=== PATIENT | female | born 1970 | race Two or more races ===

== ENCOUNTER → 2025-03-02 | Outpatient (CLI) | payer MEDICAID, SELFPAY ==
[2025-03-02 09:55] LABS: HCG Qualitative,Urine Negative
--- NOTE | 2025-03-02 10:30 | XR_ITS ---
Examination: CT chest, without intravenous contrast. Sagittal and coronal 2-D reconstructions. Exam date and time: March 02, 2025, 0904 hours INDICATIONS: Screening for tuberculosis CTDI:vol (mGy) 10.2 DLP: (mGycm) 321 Technique: Multiple 3.0 mm axial sections of the chest to been obtained. Bone and lung density settings are obtained. Sagittal and coronal 2-D reconstructions have been obtained. Low dose protocols were performed. One or more of the following dose reduction techniques were used; automated exposure control, adjustment of the mA and/or KV according to patient size, use of iterative reconstruction technique. Findings: No thoracic aortic aneurysm dilatation Pulmonary artery segments are not enlarged No paratracheal tracheobronchial or bronchopulmonary adenopathy 1 mm granuloma in the right midlung No pneumonia or pulmonary edema Liver spleen intact no gallstones No hydronephrosis Moderate thoracic spondylosis No visualized liver or splenic lesion No gallstones No pancreatic mass IMPRESSION: No mediastinal lymphadenopathy No pneumonia or pulmonary edema No radiographic findings of active tuberculosis
== END | disposition home or self-care (01) ==
PROVIDERS: PCP Nurse Practitioner Family
DX: Z11.1 Encounter for screening for respiratory tuberculosis (principal); Z32.00 Encounter for pregnancy test, result unknown
CPT/HCPCS: 71250; 81025